=== PATIENT | male | born 1985 | race Caucasian/White ===

== ENCOUNTER 2018-02-14 19:19 | Emergency (ER) | payer SELFPAY ==
[2018-02-14 19:34] VITALS: BP 120/79; PULSE 88; RESP 20; TEMP 97.3; O2SAT 98
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
[2018-02-14] MEDS ORDERED: Bacitracin 500 Units/gm Oint Foilpak UD ONE (19:55)
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
== END 2018-02-14 20:16 | disposition home or self-care (01) ==
LOC: C.ER 19:19
DX: S61.312A Laceration without foreign body of right middle finger with damage to nail, initial encounter (principal); W23.0XXA Caught, crushed, jammed, or pinched between moving objects, initial encounter

== ENCOUNTER 2019-02-05 21:40 | Emergency (ER) | payer OTHER ==
[2019-02-05 22:04] VITALS: BP 120/70; PULSE 82; RESP 20; TEMP 98.1; O2SAT 98
[2019-02-05] MEDS ORDERED: Silver Sulfadiazine 1% Cream (20 gm) TOP STA (22:40)
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
[2019-02-05] MEDS ORDERED: Silver Sulfadiazine 1% Cream (20 gm) ONE (22:47)
== END 2019-02-05 23:05 | disposition home or self-care (01) ==
LOC: C.ER 21:40
DX: T22.211A Burn of second degree of right forearm, initial encounter (principal); X11.8XXA Contact with other hot tap-water, initial encounter; Y99.0 Civilian activity done for income or pay